=== PATIENT | female | born 1970 | race African-American/Black ===

== ENCOUNTER 2017-10-15 19:07 | Emergency (ER) | payer BC ==
[~2017-10-15] VITALS: Ht 167.6 cm; Wt 102.1 kg
[~2017-10-15 19:07] MED LIST: CIPROFLOXACIN500 M1 PO; IBUPROFEN 400400 M2; NAPROSYN500 MG PO; NOHOMEMEDICATIONS; NORCO 5-325 TA1 EACH PO; VALIUM5 MG PO; ZOFRAN4 MG PO; ZYRTEC10 M2 PO
[2017-10-15] MEDS ORDERED: NORCO 5-325 TA1 EACH PO (23:48)
[2017-10-15] MEDS ORDERED: IBUPROFEN 600600 M1 PO (23:48)
[2017-10-15] MEDS ORDERED: TIZANIDINE HCL4 MG PO (23:48)
== END 2017-10-16 01:06 | disposition home or self-care (01) ==
LOC: ER 19:07
DX: S16.1XXA Strain of muscle, fascia and tendon at neck level, initial encounter (principal); S70.01XA Contusion of right hip, initial encounter; V43.52XA Car driver injured in collision with other type car in traffic accident, initial encounter; Y93.I9 Activity, other involving external motion; Y92.89 Other specified places as the place of occurrence of the external cause; Y99.8 Other external cause status

== ENCOUNTER 2019-05-18 19:53 | Emergency (ER) | payer BC, OTHER ==
[~2019-05-18] VITALS: Ht 167.6 cm; Wt 114.8 kg
[~2019-05-18 19:53] MED LIST changes: +IBUPROFEN 600600 M1 PO; +TIZANIDINE HCL4 MG PO
[2019-05-18 20:38] LABS: BE(vivo) 1.8 mmol/L (-2 to +3); HCO3 26.7 mmol/L (22.0-26.0); PO2 VENOUS 46.2 mmHg (35.0-45.0)
[2019-05-18] MEDS ORDERED: NAPROSYN500 MG PO (20:53)
[2019-05-18] MEDS ORDERED: NORFLEX100 MG PO (20:53)
[2019-05-18] MEDS ORDERED: ONDANSETRON HCL4 M2 PO (21:00)
[2019-05-18 21:11] VITALS: BP 151/90
== END 2019-05-18 21:15 | disposition home or self-care (01) ==
LOC: ER 19:53
PROVIDERS: Physician Assistant
DX: S16.1XXA Strain of muscle, fascia and tendon at neck level, initial encounter (principal); S00.83XA Contusion of other part of head, initial encounter; I10 Essential (primary) hypertension; Z86.2 Personal history of diseases of the blood and blood-forming organs and certain disorders involving the immune mechanism; Z98.890 Other specified postprocedural states; V89.2XXA Person injured in unspecified motor-vehicle accident, traffic, initial encounter; Y93.89 Activity, other specified; Y92.89 Other specified places as the place of occurrence of the external cause; Y99.8 Other external cause status

== ENCOUNTER 2020-09-04 22:56 | Emergency (ER) | payer BC, OTHER ==
[~2020-09-04] VITALS: Ht 167.6 cm; Wt 113.4 kg
[~2020-09-04 22:56] MED LIST changes: +NORFLEX100 MG PO; +ONDANSETRON HCL4 M2 PO
[2020-09-04] MEDS ORDERED: HYDROCHLOROTHIA25 M2 PO (23:03)
[2020-09-04] MEDS ORDERED: GLYBURIDE 5 MG T5 M1 PO (23:04)
[2020-09-04] MEDS ORDERED: LANTUS SUBQ (23:04)
[2020-09-04] MEDS ORDERED: LOPRESSOR50 MG PO (23:04)
[2020-09-04] MEDS ORDERED: LIPITOR10 MG PO (23:05)
[2020-09-04] MEDS ORDERED: JANUVIA100 MG PO (23:05)
[2020-09-04] MEDS ORDERED: NEURONTIN 300M300 M2 PO (23:05)
[2020-09-05] MEDS ORDERED: PROMETH-CODEIN 65 ML PO (00:13)
[2020-09-05] MEDS ORDERED: ZPAK PO (00:18)
[2020-09-05 00:42] VITALS: BP 148/85
== END 2020-09-05 00:50 | disposition home or self-care (01) ==
LOC: ER 22:56
DX: J18.9 Pneumonia, unspecified organism (principal); I10 Essential (primary) hypertension; E11.9 Type 2 diabetes mellitus without complications; E78.5 Hyperlipidemia, unspecified; Z86.2 Personal history of diseases of the blood and blood-forming organs and certain disorders involving the immune mechanism; Z79.899 Other long term (current) drug therapy; Z79.4 Long term (current) use of insulin; Z20.828 Contact with and (suspected) exposure to other viral communicable diseases